=== PATIENT | female | born 1960 | race American Indian/Alaskan Native ===

== ENCOUNTER 2016-09-27 17:38 | Emergency (ER) | payer OTHER, BC ==
[2016-09-27] MEDS ORDERED: TORADOL IM ONE (21:51)
[2016-09-27] MEDS ORDERED: FLEXERIL PO ONE (21:51)
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
[2016-09-27 22:46] VITALS: BP 154/90
== END 2016-09-27 22:46 | disposition home or self-care (01) ==
LOC: ED 17:38
DX: S39.012A Strain of muscle, fascia and tendon of lower back, initial encounter (principal); I10 Essential (primary) hypertension; V49.50XA Passenger injured in collision with unspecified motor vehicles in traffic accident, initial encounter; Y93.89 Activity, other specified; Y99.8 Other external cause status; Y92.89 Other specified places as the place of occurrence of the external cause
CPT/HCPCS: 96372; 99282; J1885